=== PATIENT | male | born 1975 ===

== ENCOUNTER 2016-09-18 06:37 | Day surgery (SDC) | payer OTHER ==
[2016-08-26 12:00] VITALS: BMI 28.8
[2016-09-18] MEDS ORDERED: Midazolam 2 MG/2 ML VIAL ONE (07:34)
[2016-09-18] MEDS ORDERED: Propofol 10 mg/ml Inj (20 ML) ONE (07:34)
[2016-09-18] MEDS ORDERED: Rocuronium 10 mg/ml (5 ml) ONE (07:36)
[2016-09-18] MEDS ORDERED: Bupivacaine/Epi 0.25%-1:200,000 10 ml PF inj IJ ONE (07:36)
[2016-09-18] MEDS ORDERED: Lidocaine 1% Inj (20ml) ONE (07:36)
[2016-09-18] MEDS ORDERED: Phenylephrine 10 mg/ml Inj ONE (07:36)
[2016-09-18] MEDS ORDERED: Lactated Ringer's 1,000 ML IV ONE ×3 (08:25→10:24)
[2016-09-18] MEDS: ceFAZolin IV 2 gm in Dextrose 1 GM/50 ML BAG IVPB ONE ×2 (08:25→08:30)
[2016-09-18] MEDS ORDERED: Morphine 4 MG/ML VIAL ONE (09:47)
--- NOTE | 2016-09-18 09:57 | PCM.SURG1 ---
Surgeon's Initial Post Op Note - Surgeon's Notes Surgeon: Dr. Parker Benefits Manager: Dr. Luna PGY-2, Nataly BAILEY Type of Anesthesia: General Endo, Local Pre-Operative Diagnosis: Reducible umbilical hernia Operative Findings: Reducible umbilical hernia and left inguinal hernia Post-Operative Diagnosis: Reducible umbilical hernia Operation Performed: Laparoscopic umbilical hernia repair with mesh Specimen/Specimens Removed: hernia contents Estimated Blood Loss: EBL {In ML}: 10 Blood Products Given: N/A Drains Used: No Drains Post-Op Condition: Good Date of Surgery/Procedure: 09/18/16 Time of Surgery/Procedure: 08:00
[2016-09-18] MEDS ORDERED: HYDROmorphone 0.5 mg/0.5 ml ISec IVP PRN (10:05)
[2016-09-18] MEDS ORDERED: HYDROmorphone 0.5 mg/0.5 ml ISec ONE (10:08)
[2016-09-18] MEDS ORDERED: HYDROmorphone 0.5 mg/0.5 ml ISec IVP ONE ×2 (10:22→10:45)
[2016-09-18 11:33] VITALS: BP 108/61; PULSE 64; RESP 18; TEMP 96.9; O2SAT 100
--- NOTE | 2016-09-18 11:54 | OP ---
PROCEDURE DATE: 09/18/2016 PREOPERATIVE DIAGNOSIS: Umbilical hernia. POSTOPERATIVE DIAGNOSIS: Umbilical hernia containing preperitoneal fat. PROCEDURES: Laparoscopic umbilical hernia repair with mesh. SURGEON: Jose F Parker MD. RESEARCH PSYCHOLOGIST: KATIE Noriega. Nataly was present from the beginning to the end of the procedure, h elping the prepping and draping, placement of the port, and closure of the wound. She helped in prep ping and draping with placement of the port and the closure of the wound. SECOND RESEARCH PSYCHOLOGIST: Gloria Luna, PGY-2 resident. ANESTHESIA: General endotracheal tube anesthesia. ESTIMATED BLOOD LOSS: Around 10 mL. DRAINS: None. PATHOLOGY: The hernial sac and content was sent for the pathology. COMPLICATIONS: None. INTRAOPERATIVE FINDINGS: The patient had preperitoneal fat containing umbilical hernia. INTRAOPERATIVE STEPS: This 41-year-old male who was diagnosed with umbilical hernia and patient was consented for the laparoscopic umbilical hernia repair with the mesh, brought to the OR, placed supin e on the operating table. After induction of the anesthesia, abdomen was prepped and draped in the u sual sterile fashion. The left upper quadrant 5 mm incision was made using the Visiport technique, p eritoneal cavity was entered. Pneumo was created. Another 5 and 8 mm port was placed in the left fl ank and left lower quadrant. Grasper and dissector was introduced, the hernial sac and content was r educed and it was taken out through the 8 mm port site and the defect was closed with transfascial #2 Ethibond sutures. After closure of the defect, the 9 cm circular mesh was implanted. After proper implantation of the mesh, all the ports were taken out under vision, pneumo was deflated and umbilica l 0.5 cm incision, as well as an port site incisions were closed with a 4-0 Monocryl and dry sterile dressing was applied. The patient tolerated the procedure well. Count of instruments and gauze was correct. There was no apparent complication. Jose F Parker MD cc: [id number] TT: 09/18/2016 11:53:58 reed
== END 2016-09-18 12:03 | disposition home or self-care (01) ==
LOC: C.SDS 06:37
PROVIDERS: ATTEND Surgery Surgical Critical Care
DX: K42.9 Umbilical hernia without obstruction or gangrene (principal)
CPT/HCPCS: 49652; 88302; C1781; J0690; J1170; J2001; J2250; J2270; J2370; J2405; J2704; J3010; J7120

== ENCOUNTER 2017-10-17 03:19 | Inpatient (IN) | payer OTHER ==
[2017-10-17 03:20] VITALS: BMI 28.8
--- NOTE | 2017-10-17 03:56 | C.PDOC ---
History Of Present Illness 42 year old male presents to the emergency department status-post injuring his penis while engaging in sexual intercourse. Patient reports hearing a noise and feeling a pop along his penile shaft and noticed immediate pain in penis. When he discontinued intercourse, he noticed acute onset of swelling to the ventral aspect of his penis with blood coming out of the urethral meatus. Patient has no significant past medical or past surgical history. Chief Complaint (Nursing): Male Genitourinary History Per: Patient History/Exam Limitations: no limitations Onset/Duration Of Symptoms: Hrs Current Symptoms Are (Timing): Still Present Severity: Severe Quality Of Discomfort: "Pain" Past Medical History Reviewed: Historical Data, Nursing Documentation, Vital Signs Vital Signs: Last Vital Signs Temp 97.6 F 10/17/17 17:20 Pulse 64 10/17/17 17:20 Resp 20 10/17/17 17:20 BP 122/80 10/17/17 17:20 Pulse Ox 97 10/17/17 17:20 - Medical History PMH: No Chronic Diseases, Gall Bladder Disease (S/P Gall Bladder Sx.) Denies: Chronic Kidney Disease Surgical History: Cholecystectomy - [facility] Procedures TETANUS TOXOID ADMINIST (01/10/14) Family History: States: No Known Family Hx - Social History Hx Tobacco Use: Yes Hx Alcohol Use: Yes Hx Substance Use: No - Immunization History Hx Tetanus Toxoid Vaccination: Yes Hx Influenza Vaccination: No Hx Pneumococcal Vaccination: No Review Of Systems Except As Marked, All Systems Reviewed And Found Negative. Genitourinary: Positive for: Penile Pain Physical Exam - Physical Exam Appears: Non-toxic, No Acute Distress Skin: Warm, Dry Head: Atraumatic, Tenderness Eye(s): bilateral: Normal Inspection Chest: Symmetrical Cardiovascular: Rhythm Regular, No Murmur Respiratory: Normal Breath Sounds, No Rales, No Rhonchi, No Wheezing Gastrointestinal/Abdominal: Normal Exam, Soft, No Tenderness Male Genital: Circumcised, Other (diffuse swelling to ventral aspect of penile shaft with blood around the urethral meatus. no evidence of bladder distention) Neurological/Psych: Oriented x3 ED Course And Treatment - Laboratory Results Result Diagrams: 10/17/17 04:06 10/17/17 04:06 O2 Sat by Pulse Oximetry: 97 (RA) Pulse Ox Interpretation: Normal - Physician Consult Information Time Consulting Physician Contacted: 03:50 Physician Contacted: Yousuf Rosario Jr. Outcome Of Conversation: Dr. Rosario suggests we admit the patient, he suggests an MRI. Medical Decision Making Medical Decision Making: Plan: CMP Lipase Physician Consult CBC PTT Prothrombin Time MRI Pelvis Morphine 10mg IVP as per Dr rosario request we attempted to get a stat MRI.This service was unavailable at [facility] on the weekend so we elected to transfer the pt to [facility] solely for the study then return him to [facility].Weattempted to tranfer the patient for for care of the pt but the urologist at [facility] was not available.The physician in the ED[facility] was a doctor Christy and he indicated that they could provide an emergent MRI and send the pt back to us with the results so we elected to go that route. Disposition - Disposition Disposition: HOSPITALIZED Disposition Time: 22:56 Condition: FAIR - Clinical Impression Clinical Impression: Fracture of corpus cavernosum penis, initial encounter - Scribe Statement The provider has reviewed the documentation as recorded by the Scribe (Joe Swann) Provider Attestation: All medical record entries made by the Scribe were at my direction and personally dictated by me. I have reviewed the chart and agree that the record accurately reflects my personal performance of the history, physical exam, medical decision making, and the department course for this patient. I have also personally directed, reviewed, and agree with the discharge instructions and disposition.
[2017-10-17 04:11] LABS: BASO # 0.1 K/uL (0.0-0.2); BASO % 1.4 % (0.0-2.0); EOS # 0.3 K/uL (0.0-0.7); EOS % 3.3 % (0.0-4.0); HEMOGLOBIN 15.1 g/dL (12.0-18.0); LYMPH # 2.9 K/uL (1.0-4.3); MEAN CELL VOLUME 89.1 fL (80.0-94.0); MEAN CORPUSCULAR HGB CONC 34.8 g/dL (33.0-37.0); MEAN PLATELET VOLUME 7.6 fL (7.2-11.7); MONO # 0.9 K/uL (0.0-0.8); MONO % 9.5 % (0.0-10.0); NEUT # 4.9 K/uL (1.8-7.0); NEUT % 53.8 % (50.0-75.0); NRBC % 0.1 % (0.0-2.0); RBC 4.89 Mil/uL (4.40-5.90); RED CELL DISTRIBUTION WIDTH 13.5 % (11.5-14.5); WHITE BLOOD COUNT 9.1 K/uL (4.8-10.8)
[2017-10-17 04:17] LABS: PROTHROMBIN TIME 10.7 SECONDS (9.7-12.2)
[2017-10-17 04:50] LABS: ALB/GLOB RATIO 1.3 (1.0-2.1); ALT/SGPT 18 U/L (21-72); AST/SGOT 26 U/L (17-59); BLOOD UREA NITROGEN 8 mg/dL (9-20); CALCIUM 9.2 mg/dl (8.6-10.4); GFR AFRICAN-AMERICAN > 60; GFR NON-AFRICAN AMERICAN > 60; LIPASE 193 U/L (23-300)
[2017-10-17] MEDS ORDERED: Ciprofloxacin 400mg/200ml D5W 400 MG/200 ML BAG IVPB ONE (14:25)
[2017-10-17] MEDS ORDERED: Bacitracin Ointment 30 GM TUBE ONE (14:44)
[2017-10-17] MEDS ORDERED: ceFAZolin 1 gm in NS 1 GM/100 ML BAG IVPB ONE (14:44)
--- NOTE | 2017-10-17 14:50 | CP.PCM.PN ---
Subjective - Date & Time of Evaluation Date of Evaluation: 10/17/17 Time of Evaluation: 14:38 - Subjective Subjective: 42 year old male who presented with classic signs of penile fracture, a mri was requested . ER transfered pt out of instatution,without my knowledge . When I called to inquire. I was advised [place] at [facility] TOLD ER MD that we needed REPORT and cd of mri that wecould review. Despite my REQUEST the cd was incompatible with our system. After examining pt and reviewing report and discussung with pt. Elected to procede w/ filmsPT was made aware A full consent was obtained from pt revieng all risks and complications HOSAY Objective - Vital Signs/Intake and Output Vital Signs (last 24 hours): Temp Pulse Resp BP Pulse Ox 98 F 71 18 100/66 94 L 10/17/17 13:53 10/17/17 13:53 10/17/17 14:22 10/17/17 13:53 10/17/17 13:53 - Labs Labs: 10/17/17 04:06 10/17/17 04:06 PT 10.7 SECONDS (9.7-12.2) 10/17/17 04:06 INR 1.0 10/17/17 04:06 APTT 32 SECONDS (21-34) 10/17/17 04:06
[2017-10-17] MEDS ORDERED: Glycopyrrolate 1 mg/5mL Inj MDV IV ONE (15:37)
--- NOTE | 2017-10-17 16:26 | PCM.SURG1 ---
Surgeon's Initial Post Op Note - Surgeon's Notes Surgeon: Abraham Hard Tile Setter: Davy Type of Anesthesia: General LMA Anesthesia Administered By: staff Pre-Operative Diagnosis: Penile fracture left Operative Findings: Penile fracture Right Post-Operative Diagnosis: Penile fracture right Operation Performed: Penile exploration and repail of Mid right corpral fracture Specimen/Specimens Removed: clots Estimated Blood Loss: EBL {In ML}: 50 Blood Products Given: N/A Drains Used: No Drains Post-Op Condition: Good Date of Surgery/Procedure: 10/17/17 Time of Surgery/Procedure: 16:27
[2017-10-17] MEDS: HYDROmorphone 0.5 mg/0.5 ml ISec IVP PRN ×2 (16:29→16:45)
--- NOTE | 2017-10-17 17:28 | CP.PCM.HP ---
<LuiJason kaiser - Last Filed: 10/17/17 17:23> History of Present Illness - History of Present Illness History of Present Illness: CC: "I broke my penis" FULL CODE This patient is a 42yo M w/ no reported medical history who is coming in after sexual intercourse with his , and while he was re-inserting his penis he missed and heard a "pop" and felt swelling of the penis. He immediately came to the hospital after this happened. He was then taken to [facility] for an MRA since we did not have MRI services available, and Dr. Rosario, Urology, came to repair his penile fracture. Images are on CD in the patients chart. The patient currently states his pain is 6/10, controlled with pain meds and denies all other symptoms. MedHx: denies Allergies: denies SurgHx: gallbladder removal, umbilical hernia repair FamHx: Denies Social: Smokes 1/2 pack of cigarettes per day since age 12 (20 pack years), social drinker 4-6 beers on the weekends, denies other illicit drugs, independent in all IADL and ADL. Present on Admission - Present on Admission Any Indicators Present on Admission: Yes History of DVT/PE: No History of Uncontrolled Diabetes: No Urinary Catheter: No Decubitus Ulcer Present: No Past Patient History - Past Medical History & Family History Past Medical History?: Yes - Past Social History Smoking Status: Current Some Days Smoker - CARDIAC Hx Cardiac Disorders: No - PULMONARY Hx Respiratory Disorders: No - NEUROLOGICAL Hx Neurological Disorder: No - HEENT Hx HEENT Problems: No - RENAL Hx Chronic Kidney Disease: No - ENDOCRINE/METABOLIC Hx Endocrine Disorders: No - HEMATOLOGICAL/ONCOLOGICAL Hx Blood Disorders: No - INTEGUMENTARY Hx Dermatological Problems: No - MUSCULOSKELETAL/RHEUMATOLOGICAL Hx Musculoskeletal Disorders: No - GASTROINTESTINAL Hx Gall Bladder Disease: Yes (S/P Gall Bladder Sx.) - GENITOURINARY/GYNECOLOGICAL Hx Genitourinary Disorders: Yes Other/Comment: HX: "INFECTION IN HIS URETER A [age] YEAR OLD WHICH WAS REMOVED. "(INFO FROM DR. ROBLERO'S NOTES OF 08/18/16). - PSYCHIATRIC Hx Substance Use: No - SURGICAL HISTORY Hx Cholecystectomy: Yes - ANESTHESIA Hx Anesthesia: Yes Hx Anesthesia Reactions: No Meds Allergies/Adverse Reactions: Allergies Allergy/AdvReac Type Severity Reaction Status Date / Time No Known Allergies Allergy Verified 08/15/14 00:47 Physical Exam - Constitutional Appears: Well, Non-toxic - Head Exam Head Exam: ATRAUMATIC, NORMAL INSPECTION - Eye Exam Eye Exam: EOMI, Normal appearance, PERRL Pupil Exam: PERRL Additional comments: extreme halitosis - ENT Exam ENT Exam: Mucous Membranes Moist - Neck Exam Neck exam: Positive for: Full Rom. Negative for: Lymphadenopathy, Thyromegaly - Respiratory Exam Respiratory Exam: Clear to Auscultation Bilateral, NORMAL BREATHING PATTERN. absent: Rales, Rhonchi, Wheezes - Cardiovascular Exam Cardiovascular Exam: REGULAR RHYTHM, +S1, +S2. absent: Diastolic murmur, Systolic Murmur - GI/Abdominal Exam GI & Abdominal Exam: Normal Bowel Sounds, Soft. absent: Tenderness Additional comments: old umbilical hernia repair scar as well as cholycystectomy reapair (robotic) - Exam Additional comments: valera in place, ROSITA bandage around penile shaft, valera is drainign olga colored urine - Extremities Exam Extremities exam: Positive for: full ROM, normal inspection. Negative for: calf tenderness, pedal edema - Back Exam Back exam: NORMAL INSPECTION. absent: CVA tenderness (L), CVA tenderness (R) - Neurological Exam Neurological exam: Alert, CN II-XII Intact, Oriented x3 - Psychiatric Exam Psychiatric exam: Normal Affect, Normal Mood - Skin Skin Exam: Warm Results - Vital Signs Recent Vital Signs: Last Vital Signs Temp 98 F 10/17/17 17:05 Pulse 67 10/17/17 17:05 Resp 15 10/17/17 17:05 BP 125/83 10/17/17 17:05 Pulse Ox 99 10/17/17 17:05 - Labs Result Diagrams: 10/17/17 04:06 10/17/17 04:06 Labs: Laboratory Results - last 24 hr 10/17/17 10/17/17 10/17/17 04:06 04:06 04:06 WBC 9.1 RBC 4.89 Hgb 15.1 Hct 43.5 MCV 89.1 MCH 31.0 MCHC 34.8 RDW 13.5 Plt Count 306 MPV 7.6 Neut % (Auto) 53.8 Lymph % (Auto) 32.0 Laurens % (Auto) 9.5 Eos % (Auto) 3.3 Baso % (Auto) 1.4 Neut # (Auto) 4.9 Lymph # (Auto) 2.9 Laurens # (Auto) 0.9 H Eos # (Auto) 0.3 Baso # (Auto) 0.1 PT 10.7 INR 1.0 APTT 32 Sodium 148 Potassium 3.5 L Chloride 106 Carbon Dioxide 26 Anion Gap 19 BUN 8 L Creatinine 0.9 Est GFR ( Amer) > 60 Est GFR (Non-Af Amer) > 60 Random Glucose 115 H Calcium 9.2 Total Bilirubin 0.1 L AST 26 ALT 18 L Alkaline Phosphatase 64 Total Protein 7.3 Albumin 4.0 Globulin 3.2 Albumin/Globulin Ratio 1.3 Lipase 193 Blood Type Antibody Screen 10/17/17 13:56 WBC RBC Hgb Hct MCV MCH MCHC RDW Plt Count MPV Neut % (Auto) Lymph % (Auto) Laurens % (Auto) Eos % (Auto) Baso % (Auto) Neut # (Auto) Lymph # (Auto) Laurens # (Auto) Eos # (Auto) Baso # (Auto) PT INR APTT Sodium Potassium Chloride Carbon Dioxide Anion Gap BUN Creatinine Est GFR ( Amer) Est GFR (Non-Af Amer) Random Glucose Calcium Total Bilirubin AST ALT Alkaline Phosphatase Total Protein Albumin Globulin Albumin/Globulin Ratio Lipase Blood Type O POSITIVE Antibody Screen Negative Assessment & Plan - Assessment and Plan (Free Text) Assessment: 42yo M admitted for Penile Fracture Penile Fracture -Dr. Rosario; Urology; thank you for your help -c/w valera as per urology; do NOT take out unless Dr. Rosario tells you to -pain control, oxycodone PRN Q4H, toradol Q6H PRN -UTI prophylaxis Ancef Q8H as per Dr. Aida Medina Current Smoker -nicotine patch 14mg; 1/2 pack a day smoker -extensive counseling given Proph -f/u labs HbA1C, TSH, Hepatitis, HIV, Lipid Panel and set up with PMD -does not need GI prophylaxis -SCD Case discussed and seen with attending physician Jason Newton PGY2 Decision To Admit - Pt Status Changed To: Hospital Disposition Of: Inpatient - Admit Certification Admit to Inpatient:: After my assessment, the patient will require hospitalization for at least two midnights. This is because of the severity of symptoms shown, intensity of services needed, and/or the medical risk in this patient being treated as an outpatient. - InPatient: Physician Admission Certification:: penile fracture - . Bed Request Type: Regular Admitting Physician: Jose Mednia <Jose Medina - Last Filed: 10/17/17 17:47> Results - Vital Signs Recent Vital Signs: Last Vital Signs Temp 98 F 10/17/17 17:05 Pulse 67 10/17/17 17:05 Resp 15 10/17/17 17:05 BP 125/83 10/17/17 17:05 Pulse Ox 99 10/17/17 17:05 - Labs Result Diagrams: 10/17/17 04:06 10/17/17 04:06 Labs: Laboratory Results - last 24 hr 10/17/17 10/17/17 10/17/17 04:06 04:06 04:06 WBC 9.1 RBC 4.89 Hgb 15.1 Hct 43.5 MCV 89.1 MCH 31.0 MCHC 34.8 RDW 13.5 Plt Count 306 MPV 7.6 Neut % (Auto) 53.8 Lymph % (Auto) 32.0 Laurens % (Auto) 9.5 Eos % (Auto) 3.3 Baso % (Auto) 1.4 Neut # (Auto) 4.9 Lymph # (Auto) 2.9 Laurens # (Auto) 0.9 H Eos # (Auto) 0.3 Baso # (Auto) 0.1 PT 10.7 INR 1.0 APTT 32 Sodium 148 Potassium 3.5 L Chloride 106 Carbon Dioxide 26 Anion Gap 19 BUN 8 L Creatinine 0.9 Est GFR ( Amer) > 60 Est GFR (Non-Af Amer) > 60 Random Glucose 115 H Calcium 9.2 Total Bilirubin 0.1 L AST 26 ALT 18 L Alkaline Phosphatase 64 Total Protein 7.3 Albumin 4.0 Globulin 3.2 Albumin/Globulin Ratio 1.3 Lipase 193 Blood Type Antibody Screen 10/17/17 13:56 WBC RBC Hgb Hct MCV MCH MCHC RDW Plt Count MPV Neut % (Auto) Lymph % (Auto) Laurens % (Auto) Eos % (Auto) Baso % (Auto) Neut # (Auto) Lymph # (Auto) Laurens # (Auto) Eos # (Auto) Baso # (Auto) PT INR APTT Sodium Potassium Chloride Carbon Dioxide Anion Gap BUN Creatinine Est GFR ( Amer) Est GFR (Non-Af Amer) Random Glucose Calcium Total Bilirubin AST ALT Alkaline Phosphatase Total Protein Albumin Globulin Albumin/Globulin Ratio Lipase Blood Type O POSITIVE Antibody Screen Negative Attending/Attestation - Attestation I have personally seen and examined this patient.: Yes I have fully participated in the care of the patient.: Yes I have reviewed all pertinent clinical information: Yes Notes (Text): 10/17/17 17:47 Patient was seen and examined with resident Dr. Kalpesh Newton. Jose Medina D.O.
[2017-10-17 17:50] VITALS: RESP 20
[2017-10-17] MEDS: Oxycodone/Acetaminophen 5/325 mg Tab PO PRN (18:36)
[2017-10-17] MEDS: ceFAZolin 1 gm FROZEN Premix 1 GM/50 ML ML IVPB SCH (18:37)
[2017-10-18 00:54] VITALS: TEMP 97.9
[2017-10-18] MEDS: ceFAZolin 1 gm FROZEN Premix 1 GM/50 ML ML IVPB SCH ×3 (02:04→17:31)
[2017-10-18 08:12] LABS: BASO # 0.1 K/uL (0.0-0.2); BASO % 0.8 % (0.0-2.0); EOS # 0.2 K/uL (0.0-0.7); EOS % 1.7 % (0.0-4.0); HEMOGLOBIN 13.7 g/dL (12.0-18.0); LYMPH % 15.6 % (20.0-40.0); MEAN CELL VOLUME 89.8 fL (80.0-94.0); MEAN CORPUSCULAR HEMOGLOBIN 31.2 pg (27.0-31.0); MEAN CORPUSCULAR HGB CONC 34.7 g/dL (33.0-37.0); MEAN PLATELET VOLUME 7.8 fL (7.2-11.7); MONO % 7.5 % (0.0-10.0); NEUT # 9.5 K/uL (1.8-7.0); NEUT % 74.4 % (50.0-75.0); RBC 4.38 Mil/uL (4.40-5.90); RED CELL DISTRIBUTION WIDTH 13.4 % (11.5-14.5); WHITE BLOOD COUNT 12.8 K/uL (4.8-10.8)
[2017-10-18 08:29] LABS: ALB/GLOB RATIO 1.1 (1.0-2.1); ALT/SGPT 11 U/L (21-72); AST/SGOT 25 U/L (17-59); BLOOD UREA NITROGEN 7 mg/dL (9-20); CALCIUM 7.9 mg/dl (8.6-10.4); GFR AFRICAN-AMERICAN > 60; GFR NON-AFRICAN AMERICAN > 60; HDL CHOLESTEROL 37 mg/dL (30-70)
[2017-10-18 08:38] LABS: LDL CHOLESTEROL 86 mg/dL (0-129)
[2017-10-18 08:58] LABS: HEPATITIS B SURFACE AG Negative (NEGATIVE)
[2017-10-18 09:04] LABS: HEPATITIS A IGM NEGATIVE (NEGATIVE); HEPATITIS B CORE AB NEGATIVE (NEGATIVE)
[2017-10-18 09:16] LABS: HEPATITIS C ANTIBODY NEGATIVE (NEGATIVE)
[2017-10-18] MEDS ORDERED: Potassium Chloride 20 mEq ER Tab PO ONE (09:26)
[2017-10-18] MEDS: Oxycodone/Acetaminophen 5/325 mg Tab PO PRN (09:44)
--- NOTE | 2017-10-18 10:21 | CP.PCM.PN ---
<Blaise He - Last Filed: 10/18/17 10:34> Subjective - Date & Time of Evaluation Date of Evaluation: 10/18/17 Time of Evaluation: 10:17 - Subjective Subjective: Patient seen and examined at bedside. Doing well with no complaints at this time. Pain is controlled. Denies any fever or chills. Producing urine in valera. No hematuria. No chest pain or SOB. No nausea, vomiting. Complaining of constipation Objective - Vital Signs/Intake and Output Vital Signs (last 24 hours): Temp Pulse Resp BP Pulse Ox 97.9 F 65 20 133/86 96 10/18/17 07:00 10/18/17 09:43 10/18/17 07:00 10/18/17 09:43 10/18/17 07:00 Intake and Output: 10/18/17 10/18/17 06:59 18:59 Intake Total 700 Output Total 700 Balance 0 - Medications Medications: Current Medications Acetaminophen (Tylenol 325mg Tab) 650 mg PO Q6 PRN PRN Reason: Fever >100.4 F Cefazolin Sodium (Ancef) 1 gm in 50 mls @ 100 mls/hr IVPB Q8H [facility] PRN Reason: Protocol Last Admin: 10/18/17 09:45 Dose: 100 mls/hr Ketorolac Tromethamine (Toradol) 30 mg IV Q6 PRN PRN Reason: Pain, moderate (4-7) Nicotine (Nicoderm Cq) 1 patch TD DAILY [facility] Last Admin: 10/18/17 09:45 Dose: 1 patch Ondansetron HCl (Zofran Inj) 4 mg IVP Q6 PRN PRN Reason: Nausea/Vomiting Oxycodone/Acetaminophen (Percocet 5/325 Mg Tab) 1 tab PO Q4H PRN PRN Reason: Pain, moderate (4-7) Stop: 10/20/17 16:39 Last Admin: 10/18/17 09:44 Dose: 1 tab - Labs Labs: 10/18/17 08:07 10/18/17 08:07 PT 10.7 SECONDS (9.7-12.2) 10/17/17 04:06 INR 1.0 10/17/17 04:06 APTT 32 SECONDS (21-34) 10/17/17 04:06 - Constitutional Appears: Well - Head Exam Head Exam: ATRAUMATIC, NORMAL INSPECTION, NORMOCEPHALIC - Eye Exam Eye Exam: EOMI, Normal appearance, PERRL Pupil Exam: NORMAL ACCOMODATION, PERRL - ENT Exam ENT Exam: Mucous Membranes Moist, Normal Exam - Neck Exam Neck Exam: Full ROM, Normal Inspection. absent: Lymphadenopathy - Respiratory Exam Respiratory Exam: Clear to Ausculation Bilateral, NORMAL BREATHING PATTERN - Cardiovascular Exam Cardiovascular Exam: REGULAR RHYTHM, +S1, +S2. absent: Murmur - GI/Abdominal Exam GI & Abdominal Exam: Soft, Normal Bowel Sounds. absent: Distended, Tenderness - Exam Exam: absent: NORMAL INSPECTION, Scrotal Swelling, Testicular Tenderness, Uretheral Discharge, Bladder Distension Additional comments: Dressing circumferential around shaft. C/D/I. No blood from meatus - Extremities Exam Extremities Exam: Full ROM, Normal Capillary Refill, Normal Inspection. absent : Joint Swelling, Pedal Edema - Back Exam Back Exam: NORMAL INSPECTION - Neurological Exam Neurological Exam: Alert, Awake, CN II-XII Intact, Normal Gait, Oriented x3 - Psychiatric Exam Psychiatric exam: Normal Affect, Normal Mood - Skin Skin Exam: Dry, Intact, Normal Color, Warm Assessment and Plan (1) Fracture of erect penis Assessment & Plan: s/p Penile exploration with Repair of the Mid R. Corpeal fracture Uro - Hosay Valera with 300cc of clear/yellow urine. Ancef ppx Pain controlled with percocet. Will follow up Uro reccs for further management. Patient has not other medical problems. Tobacco cessation was again discussed with the patient. Status: Acute <Lucila Perdomo V - Last Filed: 10/18/17 12:36> Objective - Vital Signs/Intake and Output Vital Signs (last 24 hours): Temp Pulse Resp BP Pulse Ox 97.9 F 65 20 133/86 96 10/18/17 07:00 10/18/17 09:43 10/18/17 07:00 10/18/17 09:43 10/18/17 07:00 Intake and Output: 10/18/17 10/18/17 06:59 18:59 Intake Total 700 Output Total 700 Balance 0 - Medications Medications: Current Medications Acetaminophen (Tylenol 325mg Tab) 650 mg PO Q6 PRN PRN Reason: Fever >100.4 F Cefazolin Sodium (Ancef) 1 gm in 50 mls @ 100 mls/hr IVPB Q8H [facility] PRN Reason: Protocol Last Admin: 10/18/17 09:45 Dose: 100 mls/hr Ketorolac Tromethamine (Toradol) 30 mg IV Q6 PRN PRN Reason: Pain, moderate (4-7) Nicotine (Nicoderm Cq) 1 patch TD DAILY [facility] Last Admin: 10/18/17 09:45 Dose: 1 patch Ondansetron HCl (Zofran Inj) 4 mg IVP Q6 PRN PRN Reason: Nausea/Vomiting Oxycodone/Acetaminophen (Percocet 5/325 Mg Tab) 1 tab PO Q4H PRN PRN Reason: Pain, moderate (4-7) Stop: 10/20/17 16:39 Last Admin: 10/18/17 09:44 Dose: 1 tab - Labs Labs: 10/18/17 08:07 10/18/17 08:07 PT 10.7 SECONDS (9.7-12.2) 10/17/17 04:06 INR 1.0 10/17/17 04:06 APTT 32 SECONDS (21-34) 10/17/17 04:06 Attending/Attestation - Attestation I have personally seen and examined this patient.: Yes I have fully participated in the care of the patient.: Yes I have reviewed all pertinent clinical information, including history, physical exam and plan: Yes Notes (Text): Patient seen, examined and case discussed with medical review specialist. Patient seen with his Geovanna at bedside. Patient gives us permission to discuss his medical problems with his at bedside. Patient reports he is doing well. Patient reports pain is controlled. Patient denies headache, denies chest pain, denies cough, denies shortness of breathe, denies abdominal pain, denies nausea, denies vomitting, reports flatus but has not had a bowel movement. Patient with my male resident, Dr He and female resident, Dr. Nina described wherein he sustained penile fracture during intercourse, where in he describes penis became bent, and bloody output from the meatus, and very painful which prompted him to come to the emergency room. patient has underwent procedure with Dr. Rosario, help very appreciated. patient is having urine output noted this morning about 300cc in the valera bag, no gross blood noted. Assessment/Plan 1) Penile Fracture Right * Urology railroad crossing protection maintainer (Dr. Rosario) help appreciated * c/w valera as per urology; do NOT take out unless Dr. Rosario tells you to * Operative Note: penile exploration and repair of mid right corpal fracture on 10/17/17 * We will follow-up with urology when patient is stable for discharge from their standpoint * Ancef 1 gram IVPB Q 8H (active since 10/17/17) * Tylenol 650mg POq6H PRN T>100.4F * d/c Toradol * Percocet 1 tab PO Q 4H PRN pain 2) Current Smoker * Since the age of [age] years old. Patient is advised the risks associated with smoking including but not limited to cancer. * Patient understands he needs to stop smoking and is amenable to nictone patch 3) Leukocytosis * Patient is postoperative Day 1 * Afebrile 4) Impaired Glucose tolerance * diet and exercise modifications * recheck a1c in one year to prevent over diabetes 5) Hypokalemia * repleted 6) Subclinical hyperthyroidism * patient is asymptomatic * Recommend thyroid studies after patient recovers from penile fracture 7) Low HDL * Will need omega 3fa in diet to increase HDL and when urology stable for exercise to improve HDL 8) Prophylactic measure * SCDS b/l * No chemical anticoagulation Disposition: will need to f/u with Dr. Rosario in regards to discharge planning
[2017-10-18 16:00] VITALS: BP 129/73; PULSE 70; O2SAT 98
--- NOTE | 2017-10-18 17:24 | CP.PCM.PN ---
Subjective - Date & Time of Evaluation Date of Evaluation: 10/18/17 Time of Evaluation: 17:22 - Subjective Subjective: Bandage removed,incision intact. Valera draining well. A good po result PPT may be discharged with valera, should follow up in my office 1 week by appt. Rosario Objective - Vital Signs/Intake and Output Vital Signs (last 24 hours): Temp Pulse Resp BP Pulse Ox 97.9 F 70 20 129/73 98 10/18/17 15:10 10/18/17 15:10 10/18/17 15:10 10/18/17 15:10 10/18/17 15:10 Intake and Output: 10/18/17 10/18/17 06:59 18:59 Intake Total 700 500 Output Total 700 1700 Balance 0 -1200 - Medications Medications: Current Medications Acetaminophen (Tylenol 325mg Tab) 650 mg PO Q6 PRN PRN Reason: Fever >100.4 F Cefazolin Sodium (Ancef) 1 gm in 50 mls @ 100 mls/hr IVPB Q8H SHARI PRN Reason: Protocol Last Admin: 10/18/17 09:45 Dose: 100 mls/hr Nicotine (Nicoderm Cq) 1 patch TD DAILY [facility] Last Admin: 10/18/17 09:45 Dose: 1 patch Ondansetron HCl (Zofran Inj) 4 mg IVP Q6 PRN PRN Reason: Nausea/Vomiting Oxycodone/Acetaminophen (Percocet 5/325 Mg Tab) 1 tab PO Q4H PRN PRN Reason: Pain, moderate (4-7) Stop: 10/20/17 16:39 Last Admin: 10/18/17 09:44 Dose: 1 tab - Labs Labs: 10/18/17 08:07 10/18/17 08:07 PT 10.7 SECONDS (9.7-12.2) 10/17/17 04:06 INR 1.0 10/17/17 04:06 APTT 32 SECONDS (21-34) 10/17/17 04:06
--- NOTE | 2017-10-18 18:35 | CP.PCM.DIS ---
<Jason Peña - Last Filed: 10/18/17 18:32> Provider - Provider Date of Admission: 10/17/17 06:21 Attending physician: Lucila Perdomo DO Consults: Dr Rosario; urology Time Spent in preparation of Discharge (in minutes): 45 Hospital Course - Lab Results Lab Results: Most Recent Lab Values WBC 12.8 K/uL (4.8-10.8) H 10/18/17 08:07 RBC 4.38 Mil/uL (4.40-5.90) L 10/18/17 08:07 Hgb 13.7 g/dL (12.0-18.0) 10/18/17 08:07 Hct 39.4 % (35.0-51.0) 10/18/17 08:07 MCV 89.8 fL (80.0-94.0) 10/18/17 08:07 MCH 31.2 pg (27.0-31.0) H 10/18/17 08:07 MCHC 34.7 g/dL (33.0-37.0) 10/18/17 08:07 RDW 13.4 % (11.5-14.5) 10/18/17 08:07 Plt Count 246 K/uL (130-400) 10/18/17 08:07 MPV 7.8 fL (7.2-11.7) 10/18/17 08:07 Neut % (Auto) 74.4 % (50.0-75.0) 10/18/17 08:07 Lymph % (Auto) 15.6 % (20.0-40.0) L 10/18/17 08:07 Wetzel % (Auto) 7.5 % (0.0-10.0) 10/18/17 08:07 Eos % (Auto) 1.7 % (0.0-4.0) 10/18/17 08:07 Baso % (Auto) 0.8 % (0.0-2.0) 10/18/17 08:07 Neut # (Auto) 9.5 K/uL (1.8-7.0) H 10/18/17 08:07 Lymph # (Auto) 2.0 K/uL (1.0-4.3) 10/18/17 08:07 Wetzel # (Auto) 1.0 K/uL (0.0-0.8) H 10/18/17 08:07 Eos # (Auto) 0.2 K/uL (0.0-0.7) 10/18/17 08:07 Baso # (Auto) 0.1 K/uL (0.0-0.2) 10/18/17 08:07 PT 10.7 SECONDS (9.7-12.2) 10/17/17 04:06 INR 1.0 10/17/17 04:06 APTT 32 SECONDS (21-34) 10/17/17 04:06 Sodium 141 mmol/L (132-148) 10/18/17 08:07 Potassium 3.5 mmol/L (3.6-5.2) L 10/18/17 08:07 Chloride 106 mmol/L (98-107) 10/18/17 08:07 Carbon Dioxide 26 mmol/L (22-30) 10/18/17 08:07 Anion Gap 14 (10-20) 10/18/17 08:07 BUN 7 mg/dL (9-20) L 10/18/17 08:07 Creatinine 0.8 mg/dL (0.8-1.5) 10/18/17 08:07 Est GFR ( Amer) > 60 10/18/17 08:07 Est GFR (Non-Af Amer) > 60 10/18/17 08:07 Random Glucose 120 mg/dL (75-110) H 10/18/17 08:07 Hemoglobin A1c 5.9 % (4.2-6.5) 10/18/17 08:07 Calcium 7.9 mg/dl (8.6-10.4) L 10/18/17 08:07 Total Bilirubin < 0.1 mg/dL (0.2-1.3) L 10/18/17 08:07 AST 25 U/L (17-59) 10/18/17 08:07 ALT 11 U/L (21-72) L D 10/18/17 08:07 Alkaline Phosphatase 60 U/L (38-126) 10/18/17 08:07 Total Protein 5.8 g/dL (6.3-8.3) L 10/18/17 08:07 Albumin 3.0 g/dL (3.5-5.0) L D 10/18/17 08:07 Globulin 2.8 gm/dL (2.2-3.9) 10/18/17 08:07 Albumin/Globulin Ratio 1.1 (1.0-2.1) 10/18/17 08:07 Triglycerides 122 mg/dL (0-149) 10/18/17 08:07 Cholesterol 134 mg/dL (0-199) 10/18/17 08:07 LDL Cholesterol Direct 86 mg/dL (0-129) 10/18/17 08:07 HDL Cholesterol 37 mg/dL (30-70) 10/18/17 08:07 Lipase 193 U/L (23-300) 10/17/17 04:06 Free T4 1.33 ng/dL (0.78-2.19) 10/18/17 08:07 TSH 3rd Generation 0.37 mIU/L (0.46-4.68) L 10/18/17 08:07 Hepatitis A IgM Ab Negative (NEGATIVE) 10/18/17 08:07 Hep Bs Antigen Negative (NEGATIVE) 10/18/17 08:07 Hep B Core IgM Ab Negative (NEGATIVE) 10/18/17 08:07 Hepatitis C Antibody Negative (NEGATIVE) 10/18/17 08:07 HIV 1&2 Antibody Screen Negative (NEGATIVE) 10/18/17 08:07 Blood Type O POSITIVE 10/17/17 13:56 Antibody Screen Negative 10/17/17 13:56 - Hospital Course Hospital Course: (1) Fracture of erect penis Assessment & Plan: s/p Penile exploration with Repair of the Mid R. Corpeal fracture Uro - Hosay Valera with 300cc of clear/yellow urine. Ancef ppx Pain controlled with percocet. As per Dr. Rosario and Dr. Perdomo, the patient is stable for d/c the patient will go home with valera for 7 days; he should be given bags to change, and do not take the valera out unless Dr. Rosario does so He will need to take kefflex 500mg BID for 7d as per Dr. Rosario he can take tylenol/ibprofen alternating for pain, as indicated on OTC bottles he needs to take a fish oil, also available over the counter for low HDL the patient should also start a better diet, with increased whole fruits/ vegetables and lean meats as well as weight and aerobic training daily the patient should also stop smoking Discharge Exam - Head Exam Head Exam: ATRAUMATIC, NORMAL INSPECTION, NORMOCEPHALIC Additional comments: Please refer to todays progress note for physical exam Discharge Plan - Discharge Medications Prescriptions: Cephalexin [Keflex] 500 mg PO BID #14 capsule Nicotine 14 mg/24 hr [Nicoderm CQ] 1 each TD DAILY #30 patch - Follow Up Plan Condition: GOOD Disposition: HOME/ ROUTINE Patient education suggested?: Yes Instructions: High Cholesterol, Smoking: Not Just Harmful to Your Lungs and Heart, Low Cholesterol, Saturated Fat, and Trans Fat Diet , How to Care for Your Valera Catheter, Male, Quitting Smoking, Cephalexin Additional Instructions: As per Dr. Rosario and Dr. Perdomo, the patient is stable for d/c the patient will go home with valera for 7 days; he should be given bags to change, and do not take the valera out unless Dr. Rosario does so He will need to take kefflex 500mg BID for 7d as per Dr. Rosario he can take tylenol/ibprofen alternating for pain, as indicated on OTC bottles he needs to take a fish oil, also available over the counter for low HDL the patient should also start a better diet, with increased whole fruits/ vegetables and lean meats as well as weight and aerobic training daily the patient should also stop smoking please follow up in the [facility] in [place] at [address] [facility] in [place] or the basement here at [facility] Referrals: Yousuf Rosario Jr., MD [Staff Provider] - <Lucila Perdomo V - Last Filed: 10/18/17 20:52> Provider - Provider Date of Admission: 10/17/17 06:21 Attending physician: Lucila Perdomo, Hospital Course - Lab Results Lab Results: Most Recent Lab Values WBC 12.8 K/uL (4.8-10.8) H 10/18/17 08:07 RBC 4.38 Mil/uL (4.40-5.90) L 10/18/17 08:07 Hgb 13.7 g/dL (12.0-18.0) 10/18/17 08:07 Hct 39.4 % (35.0-51.0) 10/18/17 08:07 MCV 89.8 fL (80.0-94.0) 10/18/17 08:07 MCH 31.2 pg (27.0-31.0) H 10/18/17 08:07 MCHC 34.7 g/dL (33.0-37.0) 10/18/17 08:07 RDW 13.4 % (11.5-14.5) 10/18/17 08:07 Plt Count 246 K/uL (130-400) 10/18/17 08:07 MPV 7.8 fL (7.2-11.7) 10/18/17 08:07 Neut % (Auto) 74.4 % (50.0-75.0) 10/18/17 08:07 Lymph % (Auto) 15.6 % (20.0-40.0) L 10/18/17 08:07 Wetzel % (Auto) 7.5 % (0.0-10.0) 10/18/17 08:07 Eos % (Auto) 1.7 % (0.0-4.0) 10/18/17 08:07 Baso % (Auto) 0.8 % (0.0-2.0) 10/18/17 08:07 Neut # (Auto) 9.5 K/uL (1.8-7.0) H 10/18/17 08:07 Lymph # (Auto) 2.0 K/uL (1.0-4.3) 10/18/17 08:07 Wetzel # (Auto) 1.0 K/uL (0.0-0.8) H 10/18/17 08:07 Eos # (Auto) 0.2 K/uL (0.0-0.7) 10/18/17 08:07 Baso # (Auto) 0.1 K/uL (0.0-0.2) 10/18/17 08:07 PT 10.7 SECONDS (9.7-12.2) 10/17/17 04:06 INR 1.0 10/17/17 04:06 APTT 32 SECONDS (21-34) 10/17/17 04:06 Sodium 141 mmol/L (132-148) 10/18/17 08:07 Potassium 3.5 mmol/L (3.6-5.2) L 10/18/17 08:07 Chloride 106 mmol/L (98-107) 10/18/17 08:07 Carbon Dioxide 26 mmol/L (22-30) 10/18/17 08:07 Anion Gap 14 (10-20) 10/18/17 08:07 BUN 7 mg/dL (9-20) L 10/18/17 08:07 Creatinine 0.8 mg/dL (0.8-1.5) 10/18/17 08:07 Est GFR ( Amer) > 60 10/18/17 08:07 Est GFR (Non-Af Amer) > 60 10/18/17 08:07 Random Glucose 120 mg/dL (75-110) H 10/18/17 08:07 Hemoglobin A1c 5.9 % (4.2-6.5) 10/18/17 08:07 Calcium 7.9 mg/dl (8.6-10.4) L 10/18/17 08:07 Total Bilirubin < 0.1 mg/dL (0.2-1.3) L 10/18/17 08:07 AST 25 U/L (17-59) 10/18/17 08:07 ALT 11 U/L (21-72) L D 10/18/17 08:07 Alkaline Phosphatase 60 U/L (38-126) 10/18/17 08:07 Total Protein 5.8 g/dL (6.3-8.3) L 10/18/17 08:07 Albumin 3.0 g/dL (3.5-5.0) L D 10/18/17 08:07 Globulin 2.8 gm/dL (2.2-3.9) 10/18/17 08:07 Albumin/Globulin Ratio 1.1 (1.0-2.1) 10/18/17 08:07 Triglycerides 122 mg/dL (0-149) 10/18/17 08:07 Cholesterol 134 mg/dL (0-199) 10/18/17 08:07 LDL Cholesterol Direct 86 mg/dL (0-129) 10/18/17 08:07 HDL Cholesterol 37 mg/dL (30-70) 10/18/17 08:07 Lipase 193 U/L (23-300) 10/17/17 04:06 Free T4 1.33 ng/dL (0.78-2.19) 10/18/17 08:07 TSH 3rd Generation 0.37 mIU/L (0.46-4.68) L 10/18/17 08:07 Hepatitis A IgM Ab Negative (NEGATIVE) 10/18/17 08:07 Hep Bs Antigen Negative (NEGATIVE) 10/18/17 08:07 Hep B Core IgM Ab Negative (NEGATIVE) 10/18/17 08:07 Hepatitis C Antibody Negative (NEGATIVE) 10/18/17 08:07 HIV 1&2 Antibody Screen Negative (NEGATIVE) 10/18/17 08:07 Blood Type O POSITIVE 10/17/17 13:56 Antibody Screen Negative 10/17/17 13:56 Attending/Attestation - Attestation I have personally seen and examined this patient.: Yes I have fully participated in the care of the patient.: Yes I have reviewed all pertinent clinical information, including history, physical exam and plan: Yes Notes (Text): Patient seen, examined, and case discussed with day-time resident. Patient was seen during rounds earlier today. Patient was evaluated by urology later this afternoon. Stable from his standpoint for discharge. Urologist recommends discharge with valera and f/u in 1 week. Per urology,the patient will go home with valera for 7 days; nursing communication provided to give he should be given bags to change, and do not take the valera out until he is evaluated by urology upon follow-up. He will need to take keflex 500mg BID for 7d as per Dr. Rosario. Script provided upon discharge. He can take tylenol/ibprofen alternating for pain, as indicated on OTC bottles He is recommended for OTC fish oil, for low HDL, lifestyle and exercise modifications given her impaired glucose intolerance He is recommended to stop smoke; advised to use OTC nictone patches. Discharge Diagnoses: 1) Penile Fracture Right--Stable * Urology communications coordinator (Dr. Rosario) help appreciated * c/w valera as per urology; do NOT take out unless Dr. Rosario tells you to * Operative Note: penile exploration and repair of mid right corpal fracture on 10/17/17 * Per urology stable for discharge. Discharge instructions as noted above * Keflex 500mg PO BID for 7 days. * OTC Tylenol or NSAID for pain prn * F/u in office in 1 week 2) Current Smoker--Chronic * Since the age of [age] years old. Patient is advised the risks associated with smoking including but not limited to cancer. * Patient understands he needs to stop smoking and is amenable to nictone patch 3) Leukocytosis * Patient is postoperative Day 1 * Afebrile 4) Impaired Glucose tolerance * diet and exercise modifications * recheck a1c in one year to prevent over diabetes 5) Hypokalemia * repleted 6) Subclinical hyperthyroidism * patient is asymptomatic * Recommend thyroid studies after patient recovers from penile fracture 7) Low HDL * Will need omega 3fa in diet to increase HDL and when urology stable for exercise to improve HDL 8) Prophylactic measure * SCDS b/l * No chemical anticoagulation
--- NOTE | 2017-10-27 07:48 | OP ---
PROCEDURE DATE: 10/17/2017 PREOPERATIVE DIAGNOSIS: Penile fracture. POSTOPERATIVE DIAGNOSIS: Right corpus cavernosum rupture. PROCEDURE: Penile exploration and repair of corpus cavernosum rupture. DESCRIPTION OF PROCEDURE: Prior to the procedure, a detailed informed consent was obtained from the patient. He is aware of the risks, complications and alternatives to this procedure. He is aware that he may experience permanent erectile dysfunction and that he also may have pain on sexual intercourse. He is also aware that may not reveal a corporal rupture. He signed the consent and was willing to accept the risks and complications. He was brought into the room, and draped and prepped in the usual manner. The penis was entered through a subcarinal incision in a circumferential fashion, the degloving incision. The penile skin was pulled back until both corpora could be visualized as well as urethra. Prior to the procedure, an 18 Bronson tip catheter had been placed in the urethra over a guidewire, and drained clear urine. The Traore could be palpated within the urethra. The left corpus was examined first and there was no evidence of any corpora fracture. The right corpus was examined. In the distal half of the corpus was noted to be a large tear, which exposed the corpora cavernosum sponge tissue. The edges of the tunica albuginea were grasped with Allis clamps until the entire laceration could be identified. The cut edge was then approximated with 2-0 Dexon suture in a discontinuous fashion. Care was taken to avoid injury to the urethra, none occurred. Once the corpora had been closed, the area was explored further, and there was no evidence of second corpora laceration. Once the area was observed and found to be devoid of bleeding, the skin was then closed with a 3-0 chromic suture in a discontinuous fashion thereby reconstituting the penis in its normal fashion. Traore catheter was left in place. A dry sterile dressing was placed on the penis and the patient was sent to the recovery room in good condition. Yousuf Rosario MD
== END 2017-10-18 19:43 | disposition home or self-care (01) | DRG 444 ==
LOC: C.ER 03:19 → C.9E 06:21 → C.3T 13:38 → C.9E 13:41 → C.5S 14:07
PROVIDERS: ADMIT Hospitalist; ATTEND Hospitalist
PROC: 0VJS0ZZ Inspection of Penis, Open Approach (ICD-10-PCS; principal; 2017-10-17 14:45)
DX: S39.840A Fracture of corpus cavernosum penis, initial encounter (principal); E87.6 Hypokalemia; E05.90 Thyrotoxicosis, unspecified without thyrotoxic crisis or storm; K59.00 Constipation, unspecified; F17.210 Nicotine dependence, cigarettes, uncomplicated; D72.829 Elevated white blood cell count, unspecified; X58.XXXA Exposure to other specified factors, initial encounter